=== PATIENT | female | born 1955 ===

== ENCOUNTER → 2024-09-11 | Outpatient (CLI) | payer MEDICARE, OTHER | END | disposition home or self-care (01) | LOC: LAB SHORT 15:17 → LAB 15:17 | DX: J32.9 Chronic sinusitis, unspecified (principal) | CPT/HCPCS: 87070; 87077; 87185; 87205 ==

== ENCOUNTER → 2025-04-17 | Outpatient (CLI) | payer MEDICARE, OTHER | LOC: LAB SHORT 10:24 → LAB 10:24 | DX: J20.9 Acute bronchitis, unspecified (principal); J45.40 Moderate persistent asthma, uncomplicated | CPT/HCPCS: 36415; 85025; 87070; 87077; 87185; 87205 ==